=== PATIENT | male | born 1985 | race Hispanic/Latino ===

== ENCOUNTER 2017-11-06 13:33 | Emergency (ER) | payer SELFPAY ==
[2017-11-06] MEDS ORDERED: LIDOCAINE 1% MPF 5 ML VIAL ONE (14:23)
--- NOTE | 2017-11-06 14:49 | EDPHYS ---
Physician Documentation [facility] Name: Martin Giraldo Age: 32 yrs Sex: Male : 1985 Arrival Date: 11/06/2017 Time: 13:36 Bed 14 Private MD: None, None ED Physician Ramón Boss HPI: 11/06 14:43 This 32 yrs old Male presents to ER via Ambulatory with complaints of Finger jr8 Laceration. 14:43 The complaints affect the 4th and 5th digits. Onset: The symptoms/episode jr8 began/occurred acutely, today. Modifying factors: The symptoms are alleviated by nothing, the symptoms are aggravated by movement. Associated signs and symptoms: The patient has no apparent associated signs or symptoms. Severity of symptoms: At their worst the symptoms were moderate, in the emergency department the symptoms are unchanged. The patient has not experienced similar symptoms in the past. The patient has not recently seen a physician. Was working and accidently cut his fingers with box sorter . Historical: - Allergies: 13:48 No Known Allergies; hb - Home Meds: 13:48 None [Active]; hb - PMHx: 13:48 None; hb - PSHx: 13:48 Appendectomy; hb - Immunization history:: Last tetanus immunization: < 5 years ago. - Social history:: Smoking status: Patient uses tobacco products, smokes one-half pack cigarettes per day. - Ebola Screening: : No symptoms or risks identified at this time. ROS: 14:43 Eyes: Negative for injury, pain, redness, and discharge, ENT: Negative for injury, jr8 pain, and discharge, Neck: Negative for injury, pain, and swelling, Cardiovascular: Negative for chest pain, palpitations, and edema, Respiratory: Negative for shortness of breath, cough, wheezing, and pleuritic chest pain, Abdomen/GI: Negative for abdominal pain, nausea, vomiting, diarrhea, and constipation, Back: Negative for injury and pain, MS/Extremity: Negative for injury and deformity, Neuro: Negative for headache, weakness, numbness, tingling, and seizure. 14:43 Skin: Positive for laceration(s), of the left hand. Exam: 14:43 Cardiovascular: Regular rate and rhythm with a normal S1 and S2. No gallops, murmurs, jr8 or rubs. Normal PMI, no JVD. No pulse deficits. Respiratory: Lungs have equal breath sounds bilaterally, clear to auscultation and percussion. No rales, rhonchi or wheezes noted. No increased work of breathing, no retractions or nasal flaring. MS/ Extremity: Pulses equal, no cyanosis. Neurovascular intact. Full, normal range of motion. Neuro: Awake and alert, GCS 15, oriented to person, place, time, and situation. Cranial nerves II-XII grossly intact. Motor strength 5/5 in all extremities. Sensory grossly intact. Cerebellar exam normal. Normal gait. 14:43 Skin: injury, laceration(s), the wound is approximately 2.5 cm(s), with a depth of .3 cm(s), of the left hand 5th digit, the second wound is approximately 2.5 cm(s), with a depth of .3 cm(s), of the left hand 4th digit, that can be described as no foreign body, linear, with mild bleeding. Vital Signs: 13:48 BP 137 / 88; Pulse 90; Resp 16; Temp 98.4; Pulse Ox 100% on R/A; Pain 10/10; hb 14:40 BP 132 / 84; Pulse 86; Resp 17; Pulse Ox 100% on R/A; rb1 Laceration: 14:43 Wound Repair of 2.5cm ( 1.0in ) subcutaneous laceration to left hand. Linear shaped.. jr8 Minimal bleeding noted.. Distal neuro/vascular/tendon intact. Anesthesia: Digital block administered with 2 mls of 1% lidocaine. Wound prep: Extensive cleansing with betadine, Wound irrigation with saline, Wound explored extensively. Skin closed with 5 4-0 Prolene using interrupted sutures and sterile technique. Patient tolerated well. 14:43 Wound Repair of 2.5cm ( 1.0in ) subcutaneous laceration to left hand. Linear shaped.. jr8 Profuse bleeding noted.. Distal neuro/vascular/tendon intact. Anesthesia: Digital block administered with 2.5 mls of 1% lidocaine. Wound prep: Extensive cleansing with betadine, Wound irrigation with saline, Wound explored extensively. Skin closed with 4 4-0 Prolene using interrupted sutures and sterile technique. Patient tolerated well. MDM: 14:00 Patient medically screened. jr8 14:43 Data reviewed: vital signs, nurses notes, and as a result, I will discharge patient. jr8 Data interpreted: Pulse oximetry: on room air is 100 %. Interpretation: normal. Counseling: I had a detailed discussion with the patient and/or guardian regarding: the historical points, exam findings, and any diagnostic results supporting the discharge/admit diagnosis, the need for outpatient follow up, a family practitioner, to return to the emergency department if symptoms worsen or persist or if there are any questions or concerns that arise at home. 11/06 14:42 Order name: Prolene, Sutures; Complete Time: 14:48 jr8 11/06 14:42 Order name: Dressing - Wound; Complete Time: 14:48 jr8 11/06 14:42 Order name: Gloves, Sterile; Complete Time: 14:48 jr8 11/06 14:42 Order name: Setup Suture Tray; Complete Time: 14:48 jr8 Administered Medications: 14:25 Drug: Lidocaine (1 %) 5 mg Route: Infiltration; rb1 Disposition: 18:41 Co-signature as Attending Physician, Ramón Boss MD. rn Disposition: 11/06/17 14:48 Discharged to Home. Impression: Laceration without foreign body of left little finger without damage to nail, Laceration without foreign body of left ring finger without damage to nail. - Condition is Stable. - Discharge Instructions: Laceration Care, Adult. - Prescriptions for Keflex 500 mg Oral Capsule - take 1 capsule by ORAL route every 6 hours for 7 days; 28 capsule. - Medication Reconciliation Form, Thank You Letter, Antibiotic Education, Prescription Opioid Use form. - Follow up: Private Physician; When: 7 - 10 days; Reason: Wound Recheck, Recheck today's complaints, Continuance of care, Staple/Suture removal, Re-evaluation by your physician. - Problem is new. - Symptoms have improved. Signatures: Ramón Boss MD MD rn Roszak, Josh, PA PA jr8 Ronna Ramirez, RN RN rb1 Abbey Adkins RN RN Corrections: (The following items were deleted from the chart) 15:04 14:48 11/06/2017 14:48 Discharged to Home. Impression: Laceration without foreign body rb1 of left little finger without damage to nail; Laceration without foreign body of left ring finger without damage to nail. Condition is Stable. Forms are Medication Reconciliation Form, Thank You Letter, Antibiotic Education, Prescription Opioid Use. Follow up: Private Physician; When: 7 - 10 days; Reason: Wound Recheck, Recheck today's complaints, Continuance of care, Staple/Suture removal, Re-evaluation by your physician. Problem is new. Symptoms have improved. jr8
--- NOTE | 2017-11-06 14:49 | ER ---
Nurse's Notes [facility] Name: Martin Giraldo Age: 32 yrs Sex: Male : 1985 Arrival Date: 11/06/2017 Time: 13:36 Bed 14 Private MD: None, None Diagnosis: Laceration without foreign body of left little finger without damage to nail;Laceration without foreign body of left ring finger without damage to nail Presentation: 11/06 13:46 Presenting complaint: Patient states: Laceration to left ring left little finger while hb cutting duct hose with razor knife 20 mins [employer]. Transition of care: patient was not received from another setting of care. Onset of symptoms was November 06, 2017. Care prior to arrival: None. 13:46 Method Of Arrival: Ambulatory hb 13:46 Acuity: BEVERLY 3 hb 13:56 Risk Assessment: Do you want to hurt yourself or someone else? Patient reports no rb1 desire to harm self or others. Initial Sepsis Screen: Does the patient meet any 2 criteria? No. Patient's initial sepsis screen is negative. Does the patient have a suspected source of infection? No. Patient's initial sepsis screen is negative. Triage Assessment: 13:56 General: Appears uncomfortable, Behavior is calm, cooperative. rb1 Historical: - Allergies: 13:48 No Known Allergies; hb - Home Meds: 13:48 None [Active]; hb - PMHx: 13:48 None; hb - PSHx: 13:48 Appendectomy; hb - Immunization history:: Last tetanus immunization: < 5 years ago. - Social history:: Smoking status: Patient uses tobacco products, smokes one-half pack cigarettes per day. - Ebola Screening: : No symptoms or risks identified at this time. Screenin:56 Abuse screen: Denies threats or abuse. Nutritional screening: No deficits noted. rb1 Tuberculosis screening: No symptoms or risk factors identified. Fall Risk None identified. Assessment: 13:56 General: Appears uncomfortable, Behavior is calm, cooperative. Pain: Complains of pain rb1 in ring finger and fifth finger Pain currently is 8 out of 10 on a pain scale. Neuro: Level of Consciousness is awake, alert, obeys commands, Oriented to person, place, time, situation. Cardiovascular: Capillary refill < 3 seconds is brisk in bilateral fingers. Respiratory: Airway is patent Respiratory effort is even, unlabored, Respiratory pattern is regular, symmetrical. GI: No signs and/or symptoms were reported involving the gastrointestinal system. : No signs and/or symptoms were reported regarding the genitourinary system. Derm: Skin is pink, warm \T\ dry. Injury Description: Laceration sustained to left ring finger and fifth finger is contaminated, moderate bleeding noted at this time. 14:53 Reassessment: Patient appears in no apparent distress at this time. No changes from rb1 previously documented assessment. Vital Signs: 13:48 BP 137 / 88; Pulse 90; Resp 16; Temp 98.4; Pulse Ox 100% on R/A; Pain 10/10; hb 14:40 BP 132 / 84; Pulse 86; Resp 17; Pulse Ox 100% on R/A; rb1 ED Course: 13:36 Patient arrived in ED. mr 13:37 None, None is Private Physician. mr 13:48 Triage completed. hb 13:48 Arm band placed on right wrist. hb 13:55 Ronna Ramirez, RN is Primary Nurse. rb1 13:56 Patient has correct armband on for positive identification. Bed in low position. Call rb1 light in reach. Side rails up X 1. Pulse ox on. NIBP on. 14:00 Blaine Nicole PA is PHCP. jr8 14:00 Ramón Boss MD is Attending Physician. jr8 15:04 No provider procedures requiring assistance completed. Patient did not have IV access rb1 during this emergency room visit. Administered Medications: 14:25 Drug: Lidocaine (1 %) 5 mg Route: Infiltration; rb1 Outcome: 14:48 Discharge ordered by . jr8 15:04 Patient left the ED. rb1 15:04 Discharged to home ambulatory. rb1 15:04 Condition: stable 15:04 Discharge instructions given to patient, Instructed on discharge instructions, follow up and referral plans. medication usage, Demonstrated understanding of instructions, follow-up care, medications, Prescriptions given X 1. Signatures: Cindy Vazquez mr Blaine Nicole PA PA 8 Ronna Ramirez, RN RN [facility] Abbey Adkins RN RN hb
== END 2017-11-06 15:04 | disposition home or self-care (01) ==
LOC: ER 13:33
PROC: 0JQK0ZZ Repair Left Hand Subcutaneous Tissue and Fascia, Open Approach (ICD-10-PCS; principal; 2017-11-06)
DX: S61.217A Laceration without foreign body of left little finger without damage to nail, initial encounter (principal); S61.215A Laceration without foreign body of left ring finger without damage to nail, initial encounter; W26.0XXA Contact with knife, initial encounter; Y93.89 Activity, other specified; Y92.89 Other specified places as the place of occurrence of the external cause; Y99.8 Other external cause status; F17.210 Nicotine dependence, cigarettes, uncomplicated
CPT/HCPCS: 99283